=== PATIENT | female | born 1960 | race Caucasian/White ===

== ENCOUNTER 2024-08-10 17:22 | Emergency (ER) | payer OTHER, MEDICARE, SELFPAY ==
--- NOTE | ~2024-08-10 | CT_ITS ---
CT brain wo con Ordering provider: Kareen Laws History: 64 years Female with . headache, dizziness, fall . Comparison: None. Technique: CT of the head without contrast. Radiation reduction technique utilized. The dose-length product was 605.33 mGy-cm. FINDINGS: BRAIN PARENCHYMA AND CSF SPACES: No midline shift, mass effect or hemorrhage. The brain parenchyma a nd CSF spaces are otherwise normal. VISUALIZED PARANASAL SINUSES: Well aerated. MASTOIDS: Well aerated. BONES: The bones appear intact. SOFT TISSUES: Visualized nasopharynx is normal. Superficial soft tissues are normal. IMPRESSION: No acute intracranial findings. Reviewed, dictated and finalized at location A. ER
--- NOTE | ~2024-08-10 | CT_ITS ---
CT thoracic lumbar wo con Ordering provider: Kareen Laws PA-C History: . fall, back pain . Comparison: None. Technique: CT thoracic lumbar spine without contrast. Automated exposure control and iterative recon struction technique were employed. The dose-length product was 1688.87 mGy-cm. FINDINGS: VERTEBRAE: Normal height and alignment. No subluxation or visible acute fracture. Degenerative change s of the thoracic and lumbar spine. Facet joint disease at the level of L4-L5 and L5-S1 on the bilaterally. DISC SPACES: Well maintained. PARASPINOUS SOFT TISSUES: Normal. IMPRESSION: No acute osseous abnormality of the thoracic spine. Reviewed, dictated and finalized at location A. [employer] REGIST[employer]AR
--- NOTE | ~2024-08-10 | CT_ITS ---
CT cervical spine wo con Ordering provider: Kareen Laws PA-C History: . fall, neck pain . Comparison: None. Technique: CT of the cervical spine was performed without contrast. Sagittal and coronal reformatted images were also obtained and reviewed. Automated exposure control and iterative reconstruction rain hnique were employed. The dose-length product was 302.78 mGy-cm. FINDINGS: VERTEBRAE: No subluxation or acute fracture. The occipital condyles are intact. Degenerative changes of the spine. DISC SPACES: Narrowing of the disc C5-C6. Multilevel facet joint disease. Uncovertebral joint osteoarthritic changes at the level of C5-C6. Bilateral narrowing of the foramina at the level of C5-C6. PARASPINOUS SOFT TISSUES: Normal. Left apical pleural apical calcification. IMPRESSION: No acute osseous abnormality cervical spine. Reviewed, dictated and finalized at location A. N [employer] SPECIALIST
[2024-08-10 17:35] VITALS: BP 157/88; PULSE 87; RESP 16; TEMP 36.6; O2SAT 95
--- NOTE | 2024-08-10 17:40 | ED.FALL ---
HPI - Fall General Chief Complaint: Fall Stated Complaint: fall, back/head pain, numbness Time Seen by Provider: 08/10/24 17:40 Focused HPI: This is a 64 year old female that presents to the ER for a fall yesterday with head injury. Reports she slipped and fell and landed on her back. She did hit her head. Did not lose consciousness. Reports headache, neck pain and back pain. GENERAL: Well-appearing, well-nourished, and in no acute distress. HEAD: Normocephalic, atraumatic. CHEST: Clear to auscultation. ?No respiratory distress. HEART: Regular rate and rhythm.? NEURO: ?Alert and oriented x3. Patient screened in triage and initial orders placed.? ?Additional care and disposition to be based upon?diagnostic testing and treatment. Related Data Home Medications ?Medication ?Instructions ?Recorded ?Confirmed ?Last Taken ?Type clonazepam 0.5 mg tablet 0.5 mg PO DAILY 11/24/22 11/24/22 Unknown History sertraline 25 mg tablet 25 mg PO DAILY 11/24/22 11/24/22 Unknown History topiramate 25 mg sprinkle capsule 25 mg PO DAILY 11/24/22 11/24/22 Unknown History (Topamax) Allergies Allergy/AdvReac Type Severity Reaction Status Date / Time No Known Allergies Allergy Unverified 11/24/22 13:33 Review of Systems Review of Systems: CONSTITUTIONAL: Denies fever EYES: Denies visual changes GASTROINTESTINAL: Denies vomiting MUSCULOSKELETAL: Reports back pain, joint pain, and myalgia. NEUROLOGIC: Reports headache. Denies numbness, or weakness. All systems reviewed & are unremarkable except as noted in HPI and below PMFSH Past Medical History Medical History (Updated 08/10/24 @ 22:10 by Kareen Laws PA-C) HSV-2 infection Herpes simplex type 1 infection Depression Acute anxiety Endometriosis, severe Surgical History Surgical History H/O breast biopsy left H/O: hysterectomy Family History Family History (Updated 11/24/22 @ 13:37 by Kelin Hernandez MA) Mother Breast cancer Heart disease Diabetes mellitus Grandparent Breast cancer Father Lung cancer Sibling Urinary bladder cancer Thyroid cancer Other Hypertension Social History Social History (Updated 11/24/22 @ 13:38 by Kelin Hernandez MA) Smoking status: Unknown if ever smoked Alcohol intake: current Substance use: never Substance use type: does not use Living arrangements: alone Occupation/Education: occupation Gender identity (if verbalized by the patient): Female Sexual Orientation (if Verbalized by the Patient): Straight or Heterosexual Exam Narrative: GENERAL: Well-appearing, well-nourished, and in no acute distress. HEAD: Normocephalic, atraumatic. EYES: PERRLA and EOMI. ENT: Nares clear, no rhinorrhea or epistaxis. Mucous membranes moist. Oropharynx without tonsillar hypertrophy exudate or other lesions. NECK: Supple. No adenopathy or masses. CHEST: Clear to auscultation. No respiratory distress. No wheezes rales or rhonchi HEART: Regular rate and rhythm. No murmur heard. Normal peripheral pulses. EXTREMITIES: Normal range of motion. No edema. Strength equal in bilateral upper and lower extremities (5/5) SKIN: Warm, dry, no rash. NEURO: No focal deficits. Alert and oriented x3. CN II-XII grossly intact. Normal gait PSYCH: Normal mood and affect Course Course Emergency Course: patient updated on her workup and agrees with plan of care Vital Signs Vital signs: Vital Signs Temperature 97.9 F 08/10/24 17:35 Pulse Rate 87 08/10/24 17:35 Respiratory Rate 16 08/10/24 17:35 Blood Pressure 157/88 H 08/10/24 17:35 Pulse Oximetry 95 08/10/24 17:35 Oxygen Delivery Room Air 08/10/24 17:35 Temperature 97.9 F 08/10/24 17:35 Pulse Rate 92 08/10/24 20:51 Respiratory Rate 18 08/10/24 20:51 Blood Pressure 109/56 L 08/10/24 20:51 Pulse Oximetry 96 08/10/24 20:51 Oxygen Delivery Room Air 08/10/24 17:35 MDM - Fall MDM Narrative Medical decision making narrative: Patient presents to the ER after a fall with head injury, neck pain, back pain. She is neurologically intact. CT brain, cervical spine, thoracic spine, lumbar spine without acute findings. Patient was updated on her workup and agrees with plan of care. She is to follow up with PCP. She was given warnings to return to the ER Differential Diagnosis Differential diagnosis: Likely compression fracture, concussion without loss of consciousness and other (subdural hematoma, muscle strain) Imaging Data Radiologist's impression: ITS Impressions Head CT 08/10/24 19:41 IMPRESSION: No acute intracranial findings. Cervical Spine CT 08/10/24 20:16 IMPRESSION: No acute osseous abnormality cervical spine. Thoracic/Lumbar Spine CT 08/10/24 20:24 IMPRESSION: No acute osseous abnormality of the thoracic spine. Critical Care Time Critical Care Time Critical Care Time: No Discharge Plan Discharge Clinical Impression: Head injury, Acute cervical myofascial strain Patient Disposition: Home, Self-Care Condition: Stable Instructions: Cervical Strain (ED), Concussion (ED) Additional Instructions: Return to the ER if you experience vision changes, vomiting, weakness, numbness, bowel/bladder incontinence, or any other symptoms that are concerning to you Rest, use ice/heat, take anti-inflammatories (Aleve, Ibuprofen, Naproxen, etc) or Tylenol as needed for pain as well as muscle relaxer (Flexeril) as needed for pain. Muscle relaxers can make you drowsy, do not drive if you take this Follow up with your primary care doctor Patient Language: Urdu Prescriptions: New cyclobenzaprine 10 mg tablet 10 mg PO TID PRN (Reason: muscle spasm) Qty: 14 0RF No Action clonazepam 0.5 mg tablet 0.5 mg PO DAILY topiramate [Topamax] 25 mg capsule, sprinkle 25 mg PO DAILY sertraline 25 mg tablet 25 mg PO DAILY estradiol 0.01 % (0.1 mg/gram) cream 1 g vaginal 2XW Qty: 42.5 6RF Follow-up/Referrals: Richa,Rishabh Zapata MD [Primary Care Provider] -
[2024-08-10 20:51] VITALS: BP 109/56; PULSE 92; RESP 18; O2SAT 96
[2024-08-10 23:05] VITALS: BP 148/90; PULSE 67; RESP 18; TEMP 36.7; O2SAT 99
== END 2024-08-10 23:06 | disposition home or self-care (01) ==
LOC: ANHED 22:20
PROVIDERS: Emergency Provider Physician Assistant
DX: S09.90XA Unspecified injury of head, initial encounter (principal); S16.1XXA Strain of muscle, fascia and tendon at neck level, initial encounter; W01.0XXA Fall on same level from slipping, tripping and stumbling without subsequent striking against object, initial encounter; F41.8 Other specified anxiety disorders
CPT/HCPCS: 70450; 72125; 72128; 72131; 99284